=== PATIENT | female | born 1950 | race Hispanic/Latino ===

== ENCOUNTER 2018-11-08 17:54 | Emergency (ER) | payer OTHER ==
[2018-11-08 18:00] VITALS: RESP 18; TEMP 98.2
[2018-11-08] MEDS ORDERED: Sodium Chloride 0.9% 1,000 ML IV STA (19:00)
--- NOTE | 2018-11-08 19:00 | ED PDOC ---
HPI: General Adult Time Seen by Provider: 11/08/18 18:45 Chief Complaint (Nursing): GI Problem Chief Complaint (Provider): HEMOPTYSIS History Per: Patient (68 Y/O FEMALE H/O THYMOMA WITH RESECTION 1998 AND RADIATION AT THAT TIME HERE TODAY WITH SUDDENT ONSET HEMOPTYOSIS AT PATH STATION. PATIENT ESTIMATES 1 CUP OF BLOOD. NO FEVERS/CHILLS. DENIES ANY SYMPTOMS THIS WEEK. IS NOT CURRENTLY ON BLOOD THINNERS. 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 PMD: DR. TOYIN BARAJAS [facility]. CONTINUOUS IMPROVEMENT CONSULTANT AT [facility] DR. EL.) Past Medical History Reviewed: Historical Data, Nursing Documentation, Vital Signs Vital Signs: Last Vital Signs Temp 98.2 F 11/08/18 17:59 Pulse 80 11/08/18 17:59 Resp 18 11/08/18 17:59 BP 149/86 11/08/18 17:59 Pulse Ox 99 11/08/18 17:59 Primary Care Provider: Non [facility] Provider, - Family History Family History: States: No Known Family Hx - Immunization History Hx Tetanus Toxoid Vaccination: No Hx Influenza Vaccination: No Hx Pneumococcal Vaccination: No - Allergies Allergies/Adverse Reactions: Allergies Allergy/AdvReac Type Severity Reaction Status Date / Time No Known Allergies Allergy Verified 11/08/18 18:02 Review of Systems ROS Statement: Except As Marked, All Systems Reviewed And Found Negative Respiratory: Positive for: Cough, Hemoptysis Physical Exam - Reviewed Nursing Documentation Reviewed: Yes Vital Signs Reviewed: Yes - Physical Exam Appears: Positive for: Well, Non-toxic, No Acute Distress Head Exam: Positive for: ATRAUMATIC, NORMAL INSPECTION, NORMOCEPHALIC Skin: Positive for: Normal Color, Warm, DRY Eye Exam: Positive for: EOMI, Normal appearance, PERRL ENT: Positive for: Normal ENT Inspection Neck: Positive for: Normal, Painless ROM Cardiovascular/Chest: Positive for: Regular Rate, Rhythm Respiratory: Positive for: Normal Breath Sounds, Wheezing (RIGHT SIDED) Gastrointestinal/Abdominal: Positive for: Normal Exam, Soft Back: Positive for: Normal Inspection Extremity: Positive for: Normal ROM Neurological/Psych: Positive for: Awake, Alert, Normal Tone - Laboratory Results Result Diagrams: 11/08/18 19:16 11/08/18 19:16 - ECG O2 Sat by Pulse Oximetry: 99 - Progress ED Course And Treament: CXR: NO PNEUMONIA/PNEUMOTHORAX NOTED Disposition - Clinical Impression Clinical Impression: Hemoptysis - Patient ED Disposition Is Patient to be Admitted: Transfer of Care - Disposition Disposition: Transfer of Care Disposition Time: 20:00 Condition: FAIR Patient Signed Over To: Dorina Enciso Handoff Comments: PENDING CT CHEST
[2018-11-08] MEDS ORDERED: Albuterol 0.083% Inhal Sol (2.5 mg/3 mL) UD INH ONE (19:11)
[2018-11-08 19:28] LABS: BASO % 0.5 % (0.0-2.0); EOS # 0.1 K/uL (0.0-0.7); HEMOGLOBIN 12.6 g/dL (12.0-16.0); LYMPH # 1.2 K/uL (1.0-4.3); LYMPH % 13.4 % (20.0-40.0); MEAN CELL VOLUME 89.4 fl (81.0-99.0); MEAN CORPUSCULAR HEMOGLOBIN 29.6 pg (27.0-31.0); MEAN CORPUSCULAR HGB CONC 33.1 g/dL (33.0-37.0); MEAN PLATELET VOLUME 11.3 fl (7.2-11.7); MONO # 0.6 K/uL (0.0-0.8); MONO % 6.4 % (0.0-10.0); NEUT # 7.2 K/uL (1.8-7.0); NEUT % 78.7 % (50.0-75.0); NRBC % 0.1 % (0.0-0.0); RBC 4.26 Mil/uL (3.80-5.20); RED CELL DISTRIBUTION WIDTH 14.2 % (11.5-14.5); WHITE BLOOD COUNT 9.2 K/uL (4.8-10.8)
[2018-11-08 19:37] LABS: ALB/GLOB RATIO 1.6 (1.0-2.1); ALBUMIN 4.4 g/dL (3.5-5.0); ALT/SGPT 29 U/L (9-52); AST/SGOT 28 U/L (14-36); BLOOD UREA NITROGEN 26 mg/dl (7-17); CALCIUM 9.2 mg/dL (8.4-10.2); GFR NON-AFRICAN AMERICAN > 60; PROTHROMBIN TIME 11.6 Seconds (9.8-13.1)
[2018-11-08 19:39] LABS: PARTIAL THROMBOPLASTIN TIME 35.1 Seconds (25.6-37.1)
[2018-11-08] MEDS ORDERED: Sodium Chloride 0.9% 50 ML IV ONE (19:54)
[2018-11-08] MEDS ORDERED: Iodixanol 320 MG/ML 100 ML BOTTLE IV ONE (19:54)
[2018-11-08] MEDS ORDERED: Promethazine/Cod 6.25mg-10mg/5ml Syr UD PO STA (20:16)
[2018-11-08] MEDS ORDERED: Albuterol-Ipratrop 3 mg / 0.5 (3 ml) UD IH STA (20:16)
--- NOTE | 2018-11-08 20:24 | ED PDOC ---
- Laboratory Results Result Diagrams: 11/08/18 19:16 11/08/18 19:16 Lab Results: PT 11.6 Seconds (9.8-13.1) 11/08/18 19:16 INR 1.0 11/08/18 19:16 APTT 35.1 Seconds (25.6-37.1) 11/08/18 19:16 Total Bilirubin 0.2 mg/dl (0.2-1.3) 11/08/18 19:16 AST 28 U/L (14-36) 11/08/18 19:16 ALT 29 U/L (9-52) 11/08/18 19:16 Alkaline Phosphatase 65 U/L (38-126) 11/08/18 19:16 Total Protein 7.2 G/DL (6.3-8.2) 11/08/18 19:16 Albumin 4.4 g/dL (3.5-5.0) 11/08/18 19:16 Globulin 2.8 gm/dL (2.2-3.9) 11/08/18 19:16 Albumin/Globulin Ratio 1.6 (1.0-2.1) 11/08/18 19:16 - ECG O2 Sat by Pulse Oximetry: 99 - Progress ED Course And Treament: case endorsed to proposal manager writer from [facility] pending CTA chest Patient with a large hemoptysis episode while in CT Dr. Irizarry at bedside; patient's Sar[place] requesting transfer to [facility], and spoke with [facility] Dr. Reeder regarding transfer Dr. Irizarry spoke with Dr. Lee, Urgent Care/ER attending at [place] who accepted transfer Arrangements made for transportation EXAM: CTA Chest with Intravenous Contrast for Pulmonary Embolism CLINICAL HISTORY: Coughing blood TECHNIQUE: Axial CTA images of the chest with intravenous contrast using a pulmonary embolism protocol. Reconstructed images were created and reviewed. 153.49 mGy-cm CONTRAST: With; [id number] 90ml was administered without incident. COMPARISON: None provided. FINDINGS: PULMONARY ARTERIES No evidence of central or segmental pulmonary embolism is seen. AORTA There is no evidence for aneurysm or dissection of the thoracic aorta. LUNGS There is airspace opacity seen in the anteromedial left lingula and posterior bibasilar lung regions compatible with multifocal pneumonic consolidations. PLEURAL SPACES No evidence of pneumothorax. No pleural effusion. HEART Normal heart size. No pericardial effusion. LYMPH NODES No lymphadenopathy is evident. BONES No focal osseous abnormality or acute fracture. There is noted to have been prior sternotomy. UPPER ABDOMEN Images of the upper abdomen demonstrate an 8.3 mm non-obstructing calculus in the posterior upper left renal pole. IMPRESSION: 1. No identification of PE. 2. Multifocal pneumonic consolidations identified in the anteromedial left lingula and posterior bibasilar regions. 3. An 8.3 mm non-obstructing calculus is seen in the posterior upper left renal pole. Disposition - Clinical Impression Clinical Impression: Hemoptysis - POA Present On Arrival: None - Disposition Disposition: Other Institution ([facility]) Disposition Time: 21:15 Condition: GUARDED
[2018-11-08 21:32] VITALS: BP 125/63; PULSE 82; O2SAT 96
--- NOTE | 2018-11-09 12:39 | CT ---
Date of service: 11/08/2018 PROCEDURE: CT Chest with contrast (Pulmonary Angiogram) HISTORY: R/O PE COMPARISON: None available. TECHNIQUE: Axial computed tomography images were obtained of the chest in the pulmonary arterial phase of enhancement. Coronal and sagittal reformatted images were created and reviewed. Intravenous contrast dose: Visipaque 320, 90 cc Radiation dose: Total exam DLP = 153.49 mGy-cm. This CT exam was performed using one or more of the following dose reduction techniques: Automated exposure control, adjustment of the mA and/or kV according to patient size, and/or use of iterative reconstruction technique. FINDINGS: PULMONARY ARTERIES: Unremarkable. No pulmonary embolism. AORTA: No acute findings. No thoracic aortic aneurysm. No aortic atherosclerotic calcification or mural plaque present. LUNGS: Ground-glass opacities appreciated in somewhat of a reticular nodular pattern affects the bilateral lower lobes more so than bilateral upper lobes and right middle lobe. Consider potential acute or subacute interstitial pneumonitis. Further, limited fibrotic changes seen at the medial left upper lobe with trace associated emphysema or traction bronchiectasis on a chronic brace basis. No definite pulmonary mass bilaterally. Central airways are remarkable for low-density material within multiple right lower lobe proximal, segmental and subsegmental airways and in a few right middle lobe proximal central airways as well. PLEURAL SPACES: Unremarkable. No effusion or pneumothorax. HEART: Unremarkable. No cardiomegaly. No significant pericardial effusion. LYMPH NODES: No significant lymphadenopathy. BONES, CHEST WALL: Prior median sternotomy and likely post CABG mediastinal surgical clips. Clinically correlate. OTHER FINDINGS: Small hiatal hernia. 8.3 mm nonobstructing intrarenal calculus upper pole left kidney. IMPRESSION: 1. No CT evidence of pulmonary embolus. 2. Acute subacute interstitial pneumonitis identified diffusely but primarily affecting the bilateral lower lobes. 3. Central airway lucent material potentially reflecting mucous is seen at multiple right lower lobe airways primarily but also minimally affecting proximal right middle lobe airways. Consider pulmonology consultation. 4. 8.3 mm nonobstructing intrarenal calculus upper pole left kidney. Preliminary report provided by Aileen, 11/08/2018, 9:10 p.m.. Central airway findings not reported in preliminary report. Findings discussed with REBECCA Lópze with written down and read back verification 11/08/2018 12:30 p.m..
--- NOTE | 2018-11-09 13:43 | RAD ---
Date of service: 11/08/2018 HISTORY: Hemoptysis COMPARISON: No prior. TECHNIQUE: Chest PA and lateral FINDINGS: LINES AND TUBES: None. LUNG AND PLEURA: The lungs are well inflated and clear. No pleural effusion or pneumothorax. HEART AND MEDIASTINUM: The heart is not enlarged. No aortic atherosclerotic calcifications present. Status post CABG. The hilar and mediastinal contours are within normal limits. SKELETAL STRUCTURES: The bony structures are within normal limits for the patient's age. VISUALIZED UPPER ABDOMEN: Normal. OTHER FINDINGS: None. IMPRESSION: No active pulmonary disease.
== END 2018-11-08 21:30 | disposition short-term general hospital (02) ==
LOC: H.ER 17:54
DX: R04.2 Hemoptysis (principal)
CPT/HCPCS: 71046; 71275; 80053; 85025; 85610; 85730; 86850; 86900; 96360; 96361; 99283; J7030; Q9967